=== PATIENT | male | born 1960 | race Caucasian/White ===

== ENCOUNTER 2023-08-05 09:18 | Outpatient (CLI) | payer OTHER ==
--- NOTE | 2023-08-05 16:40 | Ultrasound Report ---
PROCEDURE: Abdomen Limited INDICATIONS: ELEVATED LFTS TECHNIQUE: Real-time focused scanning was performed of the abdomen, with image documentation. COMPARISONS: None. FINDINGS: Correlation is limited secondary to patient body habitus and bowel gas. Liver: Liver is normal in size and homogeneous in echotexture. Liver parenchyma is diffusely echoge yaya. Main portal vein is patent with hepatopedal flow. Gallbladder: No gallstones, sludge, wall thickening or pericholecystic edema. Biliary ducts: Intrahepatic bile ducts are non-dilated. Extrahepatic bile duct caliber measures 3.4 mm. Normal is 6-7 mm or less in diameter, or 10 mm or less post-cholecystectomy. Pancreas: Not well seen secondary to bowel gas. Right kidney: Normal in size and echotexture. Right kidney measures 10 cm long. No hydronephrosis or nephrolithiasis. No solid masses. No complex renal cystic lesions which require follow-up. IVC: Intrahepatic inferior vena cava is patent. Miscellaneous: No free abdominal fluid. IMPRESSION: Evaluation is limited secondary to patient body habitus and bowel gas. 1.Liver parenchyma is diffusely echogenic which may be seen in the setting of parenchymal disease suc h as steatosis. 2.Normal sonographic appearance of the gallbladder with no biliary ductal dilatation. 3.Pancreas is not well seen secondary to bowel gas. Reviewed by: Fidel Benton MD on 08/05/2023 4:39 PM PDT Approved by: Fidel Benton MD on 08/05/2023 4:39 PM PDT Station ID: [id number]
== END 2023-08-05 09:19 | disposition home or self-care (01) ==
LOC: DI 09:18
PROVIDERS: ATTEND Family Medicine
DX: R74.01 Elevation of levels of liver transaminase levels (principal)